=== PATIENT | female | born 1995 | race Caucasian/White ===

== ENCOUNTER 2017-05-14 19:44 | Emergency (ER) | payer BC ==
[~2017-05-14] VITALS: Ht 157.5 cm; Wt 52.9 kg
[2017-05-14 19:49] VITALS: TEMP 36.7; Ht 157.5 cm; Wt 52.9 kg
[2017-05-14] MEDS ORDERED: SODIUM CHLORIDE 0.9% 1000ML 1,000 ML IV STA (20:03)
[2017-05-14] MEDS ORDERED: AMPH25CA PO (20:17)
[2017-05-14 20:43] LABS: COMPLETE YES; EOS % 1.5 %; HEMATOCRIT 43.9 % (37-47); IG% 0.1 %; LYMPH % 20.8 %; LYMPH ABS # 1.43 K/uL (1.2-3.4); MEAN CELL VOLUME 88.9 fL (80-100); MEAN CORPUSCULAR HGB CONC 34.9 g/dl (32-36); MONO % 9.4 %; NEUT % 68.2 %; PLATELET COUNT 202 K/uL (130-400); RED BLOOD COUNT 4.94 M/uL (4.2-5.4); WHITE BLOOD COUNT 6.88 K/uL (4.8-10.8)
[2017-05-14 20:48] LABS: URINE APPEARANCE CLEAR (CLEAR); URINE BILIRUBIN NEG (NEG); URINE COLOR YELLOW; URINE EPITHELIAL CELL AUTO >30 /lpf (0-5); URINE NITRITE NEG (NEG); URINE SPECIFIC GRAVITY 1.029 (1.000-1.030); UROBILINOGEN NEG (NEG); ZZUR CULT IF INDIC CLEAN CATCH YES
[2017-05-14 20:49] LABS: MANUAL MICROSCOPIC REQUIRED? NO; REVIEW REQ? NO
[2017-05-14 21:02] LABS: CALCIUM 9.7 mg/dl (8.5-10.1); CREATININE 0.83 mg/dl (0.60-1.20); POTASSIUM 3.7 mmol/L (3.5-5.1)
[2017-05-14 21:12] LABS: THYROID STIMULATING HORMONE 0.933 uIu/ml (0.300-4.500)
[2017-05-14 21:27] LABS: BENZODIAZEPINE, URINE NEG (NEG); COCAINE,URINE NEG (NEG); PHENCYCLIDINE, URINE NEG (NEG)
[2017-05-14] MEDS ORDERED: TRAM-10 PO (22:05)
--- NOTE | 2017-05-14 22:06 | EMERGENCY ROOM VISIT NOTE ---
History First contact with patient: 19:52 Chief Complaint: OTHER COMPLAINT Stated Complaint: ALL OVER PAIN;TIRED History of Present Illness The patient is a 21 year old female who presents to the Emergency Room with complaints of fatigue and diffuse muscle aches. The patient states that her symptoms started last Tuesday. The patient states that she went to [facility] on Tuesday and was tested for strep, mono and Lyme's disease. She states the strep and the mono was negative. She did not hear back about the Lyme test. The patient denies any known tick bites. The patient denies any rashes, fever . The patient states she does admit to feeling chilled intermittently. The patient denies any history of any thyroid disorder. The patient does admit that she normally has a large amount of caffeine intake but has decreased her caffeine intake over the last several days. The patient also states that she had a migraine headache earlier today but that has resolved. She states she does not have an appetite. She is eating and drinking but not as much. 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 The patient denies any drug use. The patient is on Adderall. The patient later told me that she also drove home to her family doctor on for evaluation of her symptoms. She states he did laboratory work which she does not have all the results. She also stated that currently her pain is a 5 out of 10 but prior to coming in it felt like it was a 10 out of 10. She states that something "feels off" Review of Systems 10 system review was performed and was negative unless stated otherwise history of present illness. Past Medical/Surgical History No significant past medical history Social History Smoking Status: Never Smoker Alcohol Use: occasionally Drug Use: none Marital Status: single Housing Status: lives with family Occupation Status: student Current/Historical Medications Scheduled Amphetamine-Dextroamphetamine 25MG (Adderall Xr 25MG), 25 MG PO DAILY Physical Exam Vital Signs Date Time Temp Pulse Resp B/P (MAP) Pulse Ox O2 Delivery O2 Flow Rate FiO2 05/14/17 21:43 75 18 111/61 98 Room Air 05/14/17 19:49 36.7 112 18 129/81 98 Room Air Physical Exam GENERAL: 21-year-old white female appears in no acute distress. MENTAL Status: Patient is alert and oriented 3. Her affect is flat. She answers questions appropriately. EARS: Canals clear. TMs without fluid level noted. NOSE: Nose without erythema or engorgement. PHARYNX:. Very minimal erythema noted. No edema noted. No exudate noted. Airway is adequate. NECK: Supple, no lymphadenopathy noted. No carotid bruits noted. Thyroid without enlargement or nodularity. LUNGS: Clear auscultation without wheezes rales or rhonchi. CARDIAC: Regular rate and rhythm without murmur. Pulses is full and equal throughout. ABDOMEN: Positive bowel sounds all 4 quadrants. Soft, nontender to palpation without organomegaly or masses. MUSCULOSKELETAL: No erythema or edema noted of the joints. Patient is able to move all joints without difficulty. Medical Decision & Procedures Laboratory Results 05/14/17 20:30 Red Blood Count 4.94, Mean Corpuscular Volume 88.9, Mean Corpuscular Hemoglobin 31.0, Mean Corpuscular Hemoglobin Concent 34.9, Mean Platelet Volume 11.0, Neutrophils (%) (Auto) 68.2, Lymphocytes (%) (Auto) 20.8, Monocytes (%) (Auto) 9.4, Eosinophils (%) (Auto) 1.5, Basophils (%) (Auto) 0.0, Neutrophils # (Auto) 4.69, Lymphocytes # (Auto) 1.43, Monocytes # (Auto) 0.65, Eosinophils # (Auto) 0.10, Basophils # (Auto) 0.00 05/14/17 20:30 Test 05/14/17 20:30 White Blood Count 6.88 K/uL (4.8-10.8) Red Blood Count 4.94 M/uL (4.2-5.4) Hemoglobin 15.3 g/dL (12.0-16.0) Hematocrit 43.9 % (37-47) Mean Corpuscular Volume 88.9 fL (80-100) Mean Corpuscular Hemoglobin 31.0 pg (25-34) Mean Corpuscular Hemoglobin Concent 34.9 g/dl (32-36) Platelet Count 202 K/uL (130-400) Mean Platelet Volume 11.0 fL (7.4-10.4) Neutrophils (%) (Auto) 68.2 % Lymphocytes (%) (Auto) 20.8 % Monocytes (%) (Auto) 9.4 % Eosinophils (%) (Auto) 1.5 % Basophils (%) (Auto) 0.0 % Neutrophils # (Auto) 4.69 K/uL (1.4-6.5) Lymphocytes # (Auto) 1.43 K/uL (1.2-3.4) Monocytes # (Auto) 0.65 K/uL (0.11-0.59) Eosinophils # (Auto) 0.10 K/uL (0-0.5) Basophils # (Auto) 0.00 K/uL (0-0.2) RDW Standard Deviation 39.6 fL (36.4-46.3) RDW Coefficient of Variation 12.4 % (11.5-14.5) Immature Granulocyte % (Auto) 0.1 % Immature Granulocyte # (Auto) 0.01 K/uL (0.00-0.02) Erythrocyte Sedimentation Rate 3 mm/hr (0-21) Urine Color YELLOW Urine Appearance CLEAR (CLEAR) Urine pH 6.0 (4.5-7.5) Urine Specific [place] 1.029 (1.000-1.030) Urine Protein NEG (NEG) Urine Glucose (UA) NEG (NEG) Urine Ketones TRACE (NEG) Urine Occult Blood NEG (NEG) Urine Nitrite NEG (NEG) Urine Bilirubin NEG (NEG) Urine Urobilinogen NEG (NEG) Urine Leukocyte Esterase SMALL (NEG) Urine WBC (Auto) 5-10 /hpf (0-5) Urine RBC (Auto) 0-4 /hpf (0-4) Urine Hyaline Casts (Auto) 1-5 /lpf (0-5) Urine Epithelial Cells (Auto) >30 /lpf (0-5) Urine Bacteria (Auto) 1+ (NEG) Anion Gap 4.0 mmol/L (3-11) Est Creatinine Clear Calc Drug Dose 84.1 ml/min Estimated GFR () 116.0 Estimated GFR (Non- 100.1 BUN/Creatinine Ratio 17.0 (10-20) Calcium Level 9.7 mg/dl (8.5-10.1) Total Creatine Kinase 80 U/L (26-192) Thyroid Stimulating Hormone (TSH) 0.933 uIu/ml (0.300-4.500) Urine Opiates Screen NEG (NEG) Urine Methadone, Qualitative NEG (NEG) Urine Barbiturates NEG (NEG) Urine Phencyclidine (PCP) Level NEG (NEG) Ur Amphetamine/Methamphetamine POS (NEG) MDMA (Ecstasy) Screen NEG (NEG) Urine Benzodiazepines Screen NEG (NEG) Urine Cocaine Metabolite NEG (NEG) Urine Marijuana (THC) NEG (NEG) Medications Administered Medications (Trade) Dose Ordered Sig/Corry Route Start Time Stop Time Status Last Admin Dose Admin Sodium Chloride 1,000 ml @ 999 mls/hr Q1H1M STAT IV 05/14/17 20:03 05/14/17 21:03 DC 05/14/17 20:32 999 MLS/HR ED Course The patient was evaluated. IV access was obtained. The patient was given 1 L normal saline wide-open. CBC and differential, renal profile, TSH, CPK, sedimentation rate was ordered. I attempted to call [facility] for Lyme titer results but they were closed. Labs are reviewed and were unremarkable. Urine tox screen revealed positive meth amphetamines but the patient is on Adderall. Tuesday or Tuesday we should have the final results. The patient was informed of all findings and discharged home in stable condition. Medical Decision Differential diagnosis include Lyme's disease, rhabdo myelitis, fibromyalgia, mononucleosis, hypothyroidism Impression Primary Impression: Fatigue Additional Impression: Myalgia Departure Information Dispostion Home / Self-Care Condition GOOD Prescriptions Tramadol (Ultram) 50 Mg Tab 1-2 TAB PO TID Y for Pain, #18 TAB Prov: Damaris Elmore PA-C 05/14/17 Referrals No Doctor, Assigned (PCP) Forms HOME CARE DOCUMENTATION FORM, IMPORTANT VISIT INFORMATION, WORK / SCHOOL INSTRUCTIONS Patient Instructions My [facility] Additional Instructions Rest. Push fluids. Follow a healthy diet. Also recommend multivitamin daily. Call your family physician as well as [facility] to get the results of all your laboratory testing. Take ibuprofen and/or Tylenol every 6 hours as needed for pain. For more severe pain take Ultram as directed. Do not drive while taking the Ultram. If symptoms worsen he for you get to follow-up with your family doctor, return to ER. Problem Qualifiers Primary Impression: Fatigue Fatigue type: unspecified Qualified Codes: R53.83 - Other fatigue
[2017-05-14 22:13] VITALS: BP 111/61; PULSE 75; O2SAT 98
== END 2017-05-14 22:13 | disposition home or self-care (01) ==
LOC: C.EDB 19:47 → C.EDA 22:13
DX: R53.83 Other fatigue (principal); M79.1 Myalgia; Z79.899 Other long term (current) drug therapy